=== PATIENT | male | born 1990 | race Two or more races ===

== ENCOUNTER 2021-06-29 14:24 | Emergency (ER) | payer MEDICAID ==
[~2021-06-29] VITALS: Ht 200.7 cm; Wt 172.4 kg
--- NOTE | 2021-06-29 14:33 | NUR ---
TO ER BED 1, C/O CHEST PAIN RADIATING TO LT ARM AFTER EATING AT Ping4, A&OX4, AT BEDSIDE
--- NOTE | 2021-06-29 14:55 | NUR ---
SALINE LOCK ESTABLISHED, BLOOD DRAWN, AND PICKED UP BY LAB
[2021-06-29 15:04] LABS: BASOPHILS % (AUTO) 0.4 % (0.0-2.0); EOSINOPHILS % (AUTO) 2.7 % (0.0-6.0); HEMATOCRIT 45 % (39-51); LYMPHOCYTES # (AUTO) 2.3 K/uL (0.8-4.8); LYMPHOCYTES % (AUTO) 35.6 % (20.0-44.0); MEAN CORPUSCULAR HGB CONC 34 g/dl (31.0-36.0); MEAN CORPUSCULAR VOLUME 90 fL (80-96); MONOCYTES # (AUTO) 0.6 K/uL (0.1-1.30); MONOCYTES % (AUTO) 9.4 % (2.0-12.0); NEUTROPHILS # (AUTO) 3.3 K/uL (1.8-8.9); NEUTROPHILS % (AUTO) 51.9 % (43.0-81.0); PLATELET COUNT (AUTO) 223 K/uL (150-450); RED BLOOD CELL COUNT(AUTO) 4.97 MIL/uL (4.5-6.0); WHITE BLOOD COUNT (AUTO) 6.4 K/uL (4.3-11.0)
[2021-06-29 15:12] LABS: CALCIUM, SERUM 8.5 mg/dL (8.5-10.1); CARBON DIOXIDE 24 mmol/L (21-32); CHLORIDE 105 mmol/L (98-107); GLUCOSE 116 mg/dL (74-106); POTASSIUM 3.9 mmol/L (3.5-5.1); SODIUM SERUM 140 mmol/L (136-145); UREA NITROGEN, BLOOD 18 mg/dL (7-18)
[2021-06-29] MEDS ORDERED: KETOROLAC TROMETHAMINE INJ 30 MG/ML VIAL IV ONE (15:30)
[2021-06-29] MEDS ORDERED: KETOROLAC TROMETHAMINE 15 MG/ML VIAL ONE (15:35)
[2021-06-29 16:08] VITALS: BP 133/56
== END 2021-06-29 16:09 | disposition home or self-care (01) ==
LOC: ER 14:26
DX: R07.89 Other chest pain (principal); F32.9 Major depressive disorder, single episode, unspecified; F41.9 Anxiety disorder, unspecified
CPT/HCPCS: 36415; 71045; 80048; 84484; 85025; 93005 ×2; 96374; 99285; J1885

== ENCOUNTER 2022-05-14 18:55 | Emergency (ER) | payer MEDICAID, OTHER ==
--- NOTE | 2022-05-14 21:12 | NUR ---
LEFT BEFORE TRIAGE
== END 2022-05-14 21:13 | disposition left against medical advice (07) ==
LOC: ER 19:01
DX: Z53.21 Procedure and treatment not carried out due to patient leaving prior to being seen by health care provider (principal)